=== PATIENT | female | born 1955 | race Native Hawaiian/Other Pacific Islander ===

== ENCOUNTER 2016-12-09 07:56 | Outpatient (CLI) | payer BC | END 2016-12-09 18:59 | disposition home or self-care (01) | LOC: NM 07:56 | DX: R07.9 Chest pain, unspecified (principal); R53.83 Other fatigue; Z12.31 Encounter for screening mammogram for malignant neoplasm of breast | CPT/HCPCS: A9500; G0202-TC ==

== ENCOUNTER 2017-09-20 07:51 | Day surgery (SDC) | payer BC | END 2017-09-20 10:25 | disposition home or self-care (01) | LOC: OR 07:51 | PROC: 0DJD8ZZ Inspection of Lower Intestinal Tract, Via Natural or Artificial Opening Endoscopic (ICD-10-PCS; principal; 2017-09-20) | DX: K57.30 Diverticulosis of large intestine without perforation or abscess without bleeding (principal); Z12.11 Encounter for screening for malignant neoplasm of colon | CPT/HCPCS: J2001; J2704 ==

== ENCOUNTER 2018-10-30 11:45 | Outpatient (CLI) | payer BC | END 2018-10-30 19:01 | disposition home or self-care (01) | LOC: RAD 11:45 | DX: M54.2 Cervicalgia (principal); M79.642 Pain in left hand; M79.672 Pain in left foot ==

== ENCOUNTER 2020-11-26 08:10 | Outpatient (CLI) | payer OTHER | END 2020-11-26 21:48 | disposition home or self-care (01) | LOC: MAMMO 08:10 | PROVIDERS: ATTEND Nurse Practitioner | DX: Z12.31 Encounter for screening mammogram for malignant neoplasm of breast (principal) ==

== ENCOUNTER 2021-01-22 07:58 | Outpatient (CLI) | payer OTHER | END 2021-01-22 19:29 | disposition home or self-care (01) | LOC: RAD 07:58 | PROVIDERS: ATTEND Nurse Practitioner | DX: M54.12 Radiculopathy, cervical region (principal) ==

== ENCOUNTER 2023-07-01 08:26 | Outpatient (CLI) | payer OTHER | END 2023-07-01 20:43 | disposition home or self-care (01) | LOC: MAMMO 08:26 | PROVIDERS: ATTEND Registered Nurse | DX: Z12.31 Encounter for screening mammogram for malignant neoplasm of breast (principal) ==